=== PATIENT | female | born 1955 | race Caucasian/White ===

== ENCOUNTER 2019-09-20 07:02 | Day surgery (SDC) | payer MEDICAID ==
[~2019-09-20] VITALS: Ht 157.5 cm; Wt 63.5 kg
[~2019-09-20 07:02] MED LIST: ALBU0.5N2 IN; ALLO100T PO; AMIO200T33 PO; ASPI325T4 PO; CARB200T4 PO; CITA-77 PO; FENO134C PO; IPRIH INH; LORA-622 PO; OXYC-904 PO; PANT40TA2 PO; POTA8TAB2 PO; RIVA20TA PO
[2019-09-20] MEDS ORDERED: MIDAZOLAM HCL 1MG/1ML-2 ML VIAL IV ONE (07:45)
[2019-09-20] MEDS ORDERED: fentaNYL CITRATE 100 MCG/2 ML VL IV ONE (07:45)
[2019-09-20] MEDS ORDERED: LIDOCAINE VISCOUS 2% 15ML UD PO ONE (07:45)
[2019-09-20] MEDS ORDERED: diphenhdrAMINE HCL 50 MG/1 ML VL ONE (08:34)
[2019-09-20] MEDS ORDERED: ONDANSETRON HCL 4 MG/2 ML VIAL IV PRN (09:00)
[2019-09-20] MEDS ORDERED: ACETAMINOPHEN 500 MG TAB PO PRN (09:00)
[2019-09-20] MEDS ORDERED: hydrALAZINE HCL 20 MG/ML VL IV ONE (10:00)
== END 2019-09-20 10:39 | disposition home or self-care (01) ==
LOC: CATH 07:02
PROVIDERS: ATTEND Internal Medicine
DX: I48.91 Unspecified atrial fibrillation (principal); I34.0 Nonrheumatic mitral (valve) insufficiency; E78.5 Hyperlipidemia, unspecified; I25.2 Old myocardial infarction; J44.9 Chronic obstructive pulmonary disease, unspecified; F17.210 Nicotine dependence, cigarettes, uncomplicated; I50.9 Heart failure, unspecified; Z79.82 Long term (current) use of aspirin; Z79.899 Other long term (current) drug therapy
CPT/HCPCS: 93005; 93312; J0360; J1200; J2250; J3010; 99152